=== PATIENT | male | born 1955 | race Caucasian/White ===

== ENCOUNTER 2016-12-24 15:38 | Emergency (ER) | payer BC ==
[2016-12-24] MEDS ORDERED: Aspirin 81 MG Tab.Chew PO ONE (16:05)
[2016-12-24] MEDS ORDERED: Sodium Chloride 0.9% 10 ML Syringe FLUSH PRN (16:05)
--- NOTE | 2016-12-24 16:06 | EDM.PDOC ---
ED HISTORY OF PRESENT ILLNESS - General Chief Complaint: Chest Pain Stated Complaint: CHEST PAIN Time Seen by Provider: 12/24/16 15:53 Source of Information: Reports: Patient, RN notes reviewed - History of Present Illness INITIAL COMMENTS - FREE TEXT/NARRATIVE: 61-year-old gentleman with history of hypertension presents to ED with worsening chest pain. He had onset of mild chest discomfort about 3 days ago that has been intermittent. He thought perhaps this was acid reflux. He's tried various meds for that but those meds have not been helping him. This afternoon at work at his desk the discomfort became worse, more intense and also some radiation to the left shoulder and onset of some numbness of the left hand. He also feels more fatigued than usual. No abdominal pain nausea vomiting or diaphoresis. He does not smoke. No recent cough fever or chills. There is some family history for heart problems. Both of his parents did develop congestive heart failure at a very advanced age. - Related Data Allergies/ADRs: Allergies Allergy/AdvReac Type Severity Reaction Status Date / Time No Known Allergies Allergy Verified 12/24/16 15:41 Past Medical History Respiratory History: Reports: Asthma - Past Surgical History HEENT Surgical History: Reports: Other (see below) Other HEENT Surgeries/Procedures: ear surgery, skin cancer GI Surgical History: Reports: Appendectomy Social & Family History - Tobacco Use Smoking Status *Q: Never Smoker - Caffeine Use Caffeine Use: Reports: Coffee - Recreational Drug Use Recreational Drug Use: No ED ROS GENERAL - Review of Systems Review Of Systems: See Below Constitutional: Reports: fatigue. Denies: fever, chills, diaphoresis HEENT: Reports: No symptoms Respiratory: Denies: Shortness of Breath, Pleuritic Chest Pain, Cough Cardiovascular: Reports: Chest pain, Lightheadedness GI/Abdominal: Denies: Abdominal pain, Nausea, Vomiting Musculoskeletal: Reports: shoulder pain (Left shoulder pain this afternoon). Denies: neck pain, arm pain, back pain, leg pain Skin: Reports: no symptoms Neurological: Reports: Numbness (Left hand) ED EXAM, GENERAL - Physical Exam Exam: See Below General Appearance: alert, no apparent distress Eye Exam: bilateral eye: PERRL Throat/Mouth: Normal inspection, Normal oropharynx Head: atraumatic. No: facial swelling Neck: supple, full range of motion. No: lymphadenopathy (L), lymphadenopathy (R ) Respiratory/Chest: no respiratory distress, lungs clear, normal breath sounds, chest non-tender Cardiovascular: regular rate, rhythm GI/Abdominal: soft, non tender. No: guarding Back Exam: No: CVA tenderness (L), CVA tenderness (R) Extremities: No: normal range of motion Neurological: no motor/sensory deficits Skin Exam: Warm, Dry, Normal color Course - Vital Signs Last Recorded V/S: Last Vital Signs Temp 97.8 F 12/24/16 15:41 Pulse 71 12/24/16 16:20 Resp 24 H 12/24/16 15:41 BP 148/99 H 12/24/16 16:20 Pulse Ox 97 12/24/16 15:41 - Orders/Labs/Meds Orders: Active Orders 24 hr Category Date Time Status EKG 12 Lead [EKG Documentation Completion] [RC] STAT Care 12/24/16 16:04 Active Peripheral IV Care [RC] . DIRECTED Care 12/24/16 16:05 Active Chest 1V Frontal [CR] Stat Exams 12/24/16 16:04 Taken Sodium Chloride 0.9% [Saline Flush] Med 12/24/16 16:05 Active 10 ml FLUSH ASDIRECTED PRN Peripheral IV Insertion Adult [OM.PC] Stat Oth 12/24/16 16:05 Ordered Medication Orders Sodium Chloride (Saline Flush) 10 ml FLUSH ASDIRECTED PRN PRN Reason: Keep Vein Open Last Admin: 12/24/16 15:53 Dose: 10 ml Labs: Laboratory Tests 12/24/16 12/24/16 12/24/16 Range/Units 15:53 15:53 18:10 WBC 7.53 (4.23-9.07) K/mm3 RBC 5.53 (4.63-6.08) M/mm3 Hgb 15.5 (13.7-17.5) gm/L Hct 46.6 (40.1-51.0) % MCV 84.3 (79.0-92.2) fl MCH 28.0 (25.7-32.2) pg MCHC 33.3 (32.2-35.5) g/dl RDW Std Deviation 42.3 (35.1-43.9) fL Plt Count 193 (163-337) K/mm3 MPV 8.3 L (9.4-12.3) fl Neut % (Auto) 59.9 (34.0-67.9) % Lymph % (Auto) 25.1 (21.8-53.1) % [place] % (Auto) 10.1 (5.3-12.2) % Eos % (Auto) 4.2 (0.8-7.0) Baso % (Auto) 0.3 (0.1-1.2) % Neut # (Auto) 4.51 (1.78-5.38) K/mm3 Lymph # (Auto) 1.89 (1.32-3.57) K/mm3 [place] # (Auto) 0.76 (0.30-0.82) K/mm3 Eos # (Auto) 0.32 (0.04-0.54) K/mm3 Baso # (Auto) 0.02 (0.01-0.08) K/mm3 Sodium 143 (136-145) mEq/L Potassium 3.3 L (3.5-5.1) mEq/L Chloride 104 (98-107) mEq/L Carbon Dioxide 32 (21-32) mEq/L Anion Gap 10.3 (5-15) BUN 13 (7-18) mg/dL Creatinine 1.0 (0.7-1.3) mg/dL Est Cr Clr Drug Dosing 3.02 mL/min Estimated GFR (MDRD) > 60 (>60) mL/min BUN/Creatinine Ratio 13.0 L (14-18) Glucose 102 (74-106) mg/dL Calcium 8.7 (8.5-10.1) mg/dL Total Bilirubin 0.6 (0.2-1.0) mg/dL AST 25 (15-37) U/L ALT 39 (16-63) U/L Alkaline Phosphatase 77 (46-116) U/L Troponin I < 0.017 < 0.017 (0.00-0.056) ng/mL Total Protein 7.2 (6.4-8.2) g/dl Albumin 4.0 (3.4-5.0) g/dl Globulin 3.2 gm/dL Albumin/Globulin Ratio 1.3 (1-2) Meds: Medications Generic Name Dose Route Start Last Admin Trade Name Freq PRN Reason Stop Dose Admin Sodium Chloride 10 ml 12/24/16 16:05 12/24/16 15:53 Saline Flush FLUSH 10 ml ASDIRECTED PRN Administration Keep Vein Open Discontinued Medications Generic Name Dose Route Start Last Admin Trade Name Neelam PRN Reason Stop Dose Admin Aspirin 324 mg 12/24/16 16:05 12/24/16 16:20 Aspirin PO 12/24/16 16:06 324 mg ONETIME ONE Administration Metoprolol Tartrate 50 mg 12/24/16 16:07 12/24/16 16:20 Lopressor PO 12/24/16 16:08 50 mg ONETIME ONE Administration - Re-Assessments/Exams Free Text/Narrative Re-Assessment/Exam: 12/24/16 17:08. Troponin, initial labs have come back normal. Just a few minutes ago when in the room I did observe that he is having somewhat frequent PACs. We did see a few of those initially but they're now occurring somewhat more frequently. He states he can feel these, his chest does feel more "heavy after each PAC. Chest x-ray shows what may be some mild cardiomegaly. I am going to do a repeat 2 hour troponin. 12/24/16 18:50. Repeat troponin did come back negative. I did give him 50 mg metoprolol he does seem to be having less of the PACs now than what he was having 90 minutes ago. I will have him continue at a dosage of 25 mg twice a day. On further questioning the patient and his he has had previous angiography and they state there is no significant blockage at that time. He is not sure how long ago but apparently a fair number of years ago. He also has had previous stress tests. He has never had echocardiogram. His chest x-ray does suggest some left ventricular hypertrophy and voltage criteria on EKG also suggests left ventricular hypertrophy. Therefore I am going to set him up for an echocardiogram. Discharge instructions as documented. Departure - Departure Time of Disposition: 19:02 Disposition: Home, Self-Care 01 Condition: fair Clinical Impression: Atypical chest pain, Premature atrial beats, Ventricular hypertrophy Instructions: Premature Atrial Contraction, Nonspecific Chest Pain, Easy-to- Read Referrals: Jono Lewis Jr, MD [Primary Care Provider] - Forms: ED Department Discharge Additional Instructions: continue current meds., metropolol 25 mg or 1/2 of a 50 mg tablet twice daily, do not take a morning or evening dose if your heart rate at that time is less than 55. Cardiac echocardiogram, Radiology dept will call you in the morning to give you a time. Eat a cardiac healthy diet, regular exercise program is also important for your [facility] health, follow up with Dr Lewis about 5 days after your echocardogram for results, return to ED if symptoms worsening in any way. - My Orders Last 24 Hours: My Active Orders 12/24/16 16:04 EKG 12 Lead [EKG Documentation Completion] [RC] STAT Chest 1V Frontal [CR] Stat 12/24/16 16:05 Peripheral IV Care [RC] . DIRECTED Sodium Chloride 0.9% [Saline Flush] 10 ml FLUSH ASDIRECTED PRN Peripheral IV Insertion Adult [OM.PC] Stat - Assessment/Plan Last 24 Hours: My Active Orders 12/24/16 16:04 EKG 12 Lead [EKG Documentation Completion] [RC] STAT Chest 1V Frontal [CR] Stat 12/24/16 16:05 Peripheral IV Care [RC] . DIRECTED Sodium Chloride 0.9% [Saline Flush] 10 ml FLUSH ASDIRECTED PRN Peripheral IV Insertion Adult [OM.PC] Stat
[2016-12-24] MEDS ORDERED: Metoprolol Tartrate 50 MG Tab PO ONE (16:07)
[2016-12-24 16:21] VITALS: BP 148/99
--- NOTE | 2016-12-25 08:03 | CR ---
Chest: Portable view of the chest was obtained. Comparison: No previous chest x-ray. Heart size is felt to be slightly enlarged with left ventricular configuration. Mild upper lobe pulmonary vascular redistribution is seen. Lungs otherwise are clear. Bony structures are grossly intact. Impression: 1. Findings as described above. Diagnostic code #3
== END 2016-12-24 19:25 | disposition home or self-care (01) ==
LOC: JD.ED 15:38
DX: R07.89 Other chest pain (principal); I49.1 Atrial premature depolarization; I51.7 Cardiomegaly; I10 Essential (primary) hypertension; J45.909 Unspecified asthma, uncomplicated
CPT/HCPCS: 36415; 71010; 80053; 84484; 85025; 93005; 99285; A9270; J7050

== ENCOUNTER 2021-05-25 07:29 | Day surgery (SDC) | payer BC ==
[~2021-05-25 07:29] MED LIST: Lactated Ringers 1,000 ML IV SCH; Lidocaine 1%/Sod Bicarbonate in NS 8.4% 1 ML Syringe IDERM PRN; Sodium Chloride 0.9% 10 ML Syringe FLUSH PRN
--- NOTE | 2021-05-25 08:02 | PCM.PREANE ---
Preanesthetic Assessment - Procedure Proposed Procedure: diagnostic Colonoscopy - Anesthesia/Transfusion/Family Hx Anesthesia History: Prior Anesthesia Without Reaction Family History of Anesthesia Reaction: No Transfusion History: No Prior Transfusion(s) - Review of Systems General: No Symptoms Pulmonary: Cough Cardiovascular: Dyspnea on Exertion Gastrointestinal: No Symptoms Neurological: No Symptoms Other: Reports: None - Physical Assessment NPO Status Date: 05/24/21 NPO Status Time: 00:00 Height: 1.83 m Weight: 112 kg ASA Class: 3 Mental Status: Alert & Oriented x3 Airway Class: Mallampati = 2 Dentition: Reports: Grottoes(s), Implants Thyro-Mental Finger Breadths: 2 Mouth Opening Finger Breadths: 2 ROM/Head Extension: Full Lungs: Clear to Auscultation, Normal Respiratory Effort Cardiovascular: Regular Rate, Regular Rhythm - Imaging/EKG Impressions: EKG SR rate 61 ECHO 60-65% - Allergies Allergies/Adverse Reactions: Allergies Allergy/AdvReac Type Severity Reaction Status Date / Time No Known Allergies Allergy Verified 05/24/21 15:28 - Blood Blood Available: No Product(s) Available: None - Anesthesia Plan Pre-Op Medication Ordered: None - Acknowledgements Anesthesia Type Planned: MAC Pt an Appropriate Candidate for the Planned Anesthesia: Yes Alternatives and Risks of Anesthesia Discussed w Pt/Guardian: Yes Pt/Guardian Understands and Agrees with Anesthesia Plan: Yes PreAnesthesia Questionnaire Cardiovascular History: Reports: Heart Failure, Hypertension Respiratory History: Reports: Asthma, COPD, SOB Gastrointestinal History: Reports: GERD, Irritable Bowel Syndrome Genitourinary History: Reports: [employer] History: Reports: None Musculoskeletal History: Reports: Gout, Other (See Below) Other Musculoskeletal History: hip pain, low back pain, right knee pain Neurological History: Reports: Seizure Psychiatric History: Reports: Anxiety, Depression Endocrine/Metabolic History: Reports: None Hematologic History: Reports: None Immunologic History: Reports: None Oncologic (Cancer) History: Reports: None Dermatologic History: Reports: None - Infectious Disease History Infectious Disease History: Reports: None - Past Surgical History Head Surgeries/Procedures: Reports: None HEENT Surgical History: Reports: Naso-Sinus Surgery, Other (See Below) Other HEENT Surgeries/Procedures: ear surgery, skin cancer Cardiovascular Surgical History: Reports: None Respiratory Surgical History: Reports: None GI Surgical History: Reports: Appendectomy Male Surgical History: Reports: Vasectomy Endocrine Surgical History: Reports: None Neurological Surgical History: Reports: None Musculoskeletal Surgical History: Reports: None Oncologic Surgical History: Reports: None Dermatological Surgical History: Reports: None - SUBSTANCE USE Tobacco Use Status *Q: Never Tobacco User Tobacco Use Within Last Twelve Months: No Second Hand Smoke Exposure: No Days Per Week of Alcohol Use: 1 Number of Drinks Per Day: 1 Total Drinks Per Week: 1 Recreational Drug Use History: No - HOME MEDS Home Medications: Home Meds Albuterol [Ventolin HFA] 2 puff INH Q4H PRN 05/24/21 [History] Chlorthalidone 25 mg PO DAILY 05/24/21 [History] Cholecalciferol (Vitamin D3) [Vitamin D3] 10,000 unit PO ASDIRECTED 05/24/21 [History] Colchicine 0.6 mg PO DAILY 05/24/21 [History] Irbesartan 300 mg PO DAILY 05/24/21 [History] Mometasone/Formoterol [Dulera 100-5 MCG] 1 puff INH DAILY 05/24/21 [History] RABEprazole Sodium [Aciphex] 20 mg PO DAILY 05/24/21 [History] allopurinoL [Zyloprim] 200 mg PO DAILY 05/24/21 [History] dilTIAZem HCL [Cardizem Cd] 360 mg PO DAILY 05/24/21 [History] hydroCHLOROthiazide [Hydrochlorothiazide] 25 mg PO DAILY 05/24/21 [History] - CURRENT (IN HOUSE) MEDS Current Meds: Current Medications Lactated Ringer's (Ringers, Lactated) 1,000 mls @ 125 mls/hr IV ASDIRECTED KARLA Stop: 05/25/21 23:00 Lidocaine/Sodium Bicarbonate (Lidocaine 1%/Sod Bicarbonate In Ns 8.4% 1 Ml Syringe) 0.25 ml IDERM ONETIME PRN PRN Reason: Prior to IV Start Stop: 05/25/21 18:00 Sodium Chloride (Sodium Chloride 0.9% 10 Ml Syringe) 10 ml FLUSH ASDIRECTED PRN PRN Reason: Keep Vein Open Stop: 05/25/21 18:00
[2021-05-25] MEDS ORDERED: Propofol 200 MG/20 ML SDV ONE ×2 (08:10→09:20)
[2021-05-25] MEDS ORDERED: Lidocaine 1% 4 ML ONE (08:10)
--- NOTE | 2021-05-25 10:09 | PCM48HPAN ---
Post Anesthesia Note - EVALUATION WITHIN 48HRS OF ANESTHETIC Vital Signs in Normal Range: Yes Patient Participated in Evaluation: Yes Respiratory Function Stable: Yes Airway Patent: Yes Cardiovascular Function Stable: Yes Hydration Status Stable: Yes Pain Control Satisfactory: Yes Nausea and Vomiting Control Satisfactory: Yes Mental Status Recovered: Yes Vital Signs: Last Vital Signs Temp 36.3 C 05/25/21 07:50 Pulse 84 05/25/21 07:50 Resp 16 05/25/21 07:50 BP 164/104 H 05/25/21 07:50 Pulse Ox 100 05/25/21 07:50
--- NOTE | 2021-05-25 10:09 | PCM.PRNOTE ---
- Free Text/Narrative Note: Date: 05/25/2021 Procedure: diagnostic colonoscopy Indication: positive cologuard screening test Endoscopist: Daryn Humphreys MD Findings: Prep was excellent. Terminal ileum was intubated. 3 cm pedunculated polyp in the mid rectum. Additional small polyps noted throughout the colon, with a total of 5 polyps removed. There was a submucosal lesion measuring 2 cm in diameter identified in the sigmoid colon which was also removed. Detailed Report: Patient was taken to the endoscopy suite and placed in left lateral decubitus position. Timeout was performed and monitored anesthesia care was initiated. Visual inspection of the anus revealed no abnormality. Digital rectal exam was unremarkable and the prostate felt normal. The colonoscope was inserted and advanced towards the cecum. On entry, a large polyp was identified in the rectum. The scope was successfully advanced to the cecum and the appendiceal orifice was visualized. Prep was excellent. The terminal ileum was intubated. The scope was slowly withdrawn and mucosal surfaces carefully inspected. In the transverse colon, a small sessile polyp was identified and removed using cold forceps. An additional minuscule polyp was identified near the splenic flexure which was removed in similar fashion. In the sigmoid colon, a larger submucosal round well-circumscribed lesion was identified. This was removed using hot snare. The larger polyp that had been identified on entry with the colonoscope was identified as just proximal to the distalmost valve of [place]. Using hot snare, the polyp was removed piecemeal. The polyp measured approximately 3 cm in span. There were additional satellite polypoid lesions in close proximity to this, and these were included in the single specimen container. On retroflexion, no pathology was noted otherwise. Air was suctioned from the distal colon and rectum prior to withdrawal of the scope. The patient tolerated the procedure well.
[2021-05-25 11:19] VITALS: BP 109/69; PULSE 54
== END 2021-05-25 11:15 | disposition home or self-care (01) ==
LOC: JD.SDS 07:29
PROVIDERS: ATTEND Surgery
DX: D12.3 Benign neoplasm of transverse colon (principal); D12.4 Benign neoplasm of descending colon; D12.8 Benign neoplasm of rectum; J44.9 Chronic obstructive pulmonary disease, unspecified; I11.0 Hypertensive heart disease with heart failure; I50.9 Heart failure, unspecified; E66.3 Overweight; Z79.899 Other long term (current) drug therapy; Z90.49 Acquired absence of other specified parts of digestive tract
CPT/HCPCS: 45380; 45385; J2704; J7120; 00811

== ENCOUNTER 2022-01-11 10:47 | Emergency (ER) | payer BC ==
[2022-01-11] MEDS ORDERED: Sodium Chloride 0.9% 10 ML Syringe FLUSH PRN (11:05)
[2022-01-11] MEDS: Sodium Chloride 0.9% 10 ML Syringe FLUSH PRN ×2 (11:05→11:19)
[2022-01-11] MEDS ORDERED: Iopamidol 755 Mg/ML 100 ML Bottle IVPUSH ONE (11:12)
[2022-01-11] MEDS ORDERED: Sodium Chloride 0.9% 100 ML IV SCH (11:15)
[2022-01-11] MEDS ORDERED: Heparin Sodium 5,000 Units/ML Vial IVPUSH ONE (12:15)
[2022-01-11] MEDS ORDERED: Heparin Sodium/D5W 25,000 UNITS/500 ML BAG IV SCH (12:15)
[2022-01-11] MEDS ORDERED: Ondansetron 4 MG/2 ML SDV IVPUSH ONE (12:46)
[2022-01-11 13:33] LABS: CORONAVIRUS COVID-19 NAA NEGATIVE (NEGATIVE)
[2022-01-11 13:55] VITALS: BP 129/88; PULSE 88
== END 2022-01-11 14:04 ==
LOC: JD.ED 10:47
DX: I82.491 Acute embolism and thrombosis of other specified deep vein of right lower extremity (principal); I26.99 Other pulmonary embolism without acute cor pulmonale; I11.0 Hypertensive heart disease with heart failure; I50.9 Heart failure, unspecified; M10.9 Gout, unspecified; N40.0 Benign prostatic hyperplasia without lower urinary tract symptoms; Z79.899 Other long term (current) drug therapy; Z20.822 Contact with and (suspected) exposure to COVID-19
CPT/HCPCS: 0240U; 36415; 71275; 83880; 84484; 85610; 85730; 93005; 93971; 96365; 96366; 96375; 99285; J1644; J2405; J3490; Q9967

== ENCOUNTER 2022-02-05 15:47 | Emergency (ER) | payer BC ==
[2022-02-05] MEDS ORDERED: Iopamidol 755 Mg/ML 100 ML Bottle IVPUSH ONE (17:44)
[2022-02-05] MEDS ORDERED: Sodium Chloride 0.9% 100 ML IV SCH (17:45)
[2022-02-05 19:05] VITALS: BP 168/98; PULSE 70
== END 2022-02-05 19:05 | disposition home or self-care (01) ==
LOC: JD.ED 15:47
DX: M79.604 Pain in right leg (principal); I11.0 Hypertensive heart disease with heart failure; I50.9 Heart failure, unspecified; J45.909 Unspecified asthma, uncomplicated; M10.9 Gout, unspecified; Z90.49 Acquired absence of other specified parts of digestive tract; Z79.899 Other long term (current) drug therapy
CPT/HCPCS: 36415; 71045; 71275; 80053; 83615; 83735; 83880; 84484; 85025; 85379; 85610; 85730; 86140; 93005; 93971; 99284; Q9967; 93010

== ENCOUNTER 2023-03-24 09:31 | Emergency (ER) | payer BC ==
[2023-03-24] MEDS ORDERED: Sodium Chloride 0.9% 10 ML Syringe FLUSH PRN (09:46)
[2023-03-24] MEDS ORDERED: Ondansetron 4 MG/2 ML SDV IVPUSH ONE ×2 (10:00→18:08)
[2023-03-24] MEDS ORDERED: Lactated Ringers 1,000 ML IV ONE ×2 (10:00→12:18)
[2023-03-24 10:05] LABS: EOSINOPHILS ABSOLUTE AUTO 0.04 K/mm3 (0.04-0.54); EOSINOPHILS PERCENT AUTO 0.5 (0.8-7.0); HEMATOCRIT 49.6 % (40.1-51.0); IMMATURE GRAN ABSOLUTE AUTO 0.02 K/mm3 (0.00-0.10); IMMATURE GRAN PERCENT AUTO 0.2 % (<=1.0); LYMPHOCYTES ABSOLUTE AUTO 0.64 K/mm3 (1.32-3.57); LYMPHOCYTES PERCENT AUTO 7.3 % (21.8-53.1); MEAN CORPUSCULAR HGB CONC 32.9 g/dl (32.2-35.5); MEAN CORPUSCULAR VOLUME 85.2 fl (79.0-92.2); MEAN PLATELET VOLUME 8.6 fl (9.4-12.3); MONOCYTES ABSOLUTE AUTO 0.69 K/mm3 (0.30-0.82); MONOCYTES PERCENT AUTO 7.9 % (5.3-12.2); NEUTROPHILS ABSOLUTE AUTO 7.36 K/mm3 (1.78-5.38); NEUTROPHILS PERCENT AUTO 84.1 % (34.0-67.9); PLATELET COUNT,PLT 247 K/mm3 (163-337); RED BLOOD CELL COUNT 5.82 M/mm3 (4.63-6.08); WHITE BLOOD CELL COUNT,WBC 8.75 K/mm3 (4.23-9.07)
[2023-03-24 10:13] LABS: INR 1.12; PROTHROMBIN TIME 11.9 SECONDS (9.7-12.0)
[2023-03-24 10:16] LABS: HEMOGLOBIN 16.3 gm/dl (13.7-17.5)
[2023-03-24 10:23] LABS: ALBUMIN 3.9 g/dl (3.4-5.0); ANION GAP 17.6 (5-15); BILIRUBIN TOTAL 0.9 mg/dL (0.2-1.0); BUN/CREATININE RATIO 11.3 (14-18); CALCIUM 8.9 mg/dL (8.5-10.1); EST CRCL DRUG DOSING (CG) 34.68 mL/min; MAGNESIUM 1.9 mg/dL (1.8-2.4); POTASSIUM,K 3.6 mEq/L (3.5-5.1); PROTEIN TOTAL,TP 7.9 g/dl (6.4-8.2)
[2023-03-24 10:26] LABS: CREATININE 2.3 mg/dL (0.7-1.3)
[2023-03-24] MEDS ORDERED: Acetaminophen 325 MG Tab PO ONE (10:51)
[2023-03-24 11:05] LABS: LACTIC ACID 2.4 mmol/L (0.4-2.0)
[2023-03-24] MEDS: Lactated Ringers 1,000 ML IV SCH ×2 (11:05→12:12)
[2023-03-24 11:45] LABS: CORONAVIRUS COVID-19 NAA NEGATIVE (NEGATIVE); INFLUENZA A NAA NEGATIVE (NEGATIVE)
[2023-03-24 15:07] LABS: APPEARANCE,URINE CLOUDY (Clear); BILIRUBIN,URINE 1+ (Negative); COLOR,URINE AMBER (Yellow); GLUCOSE,URINE NEGATIVE (Negative); KETONES,URINE TRACE (Negative); LEUKOCYTE ESTERASE,URINE NEGATIVE (Negative); NITRITE,URINE NEGATIVE (Negative); OCCULT BLOOD,URINE NEGATIVE (Negative); PH,URINE 5.5 (5.0-8.0); PROTEIN,URINE 3+ (Negative); UROBILINOGEN,URINE 0.2 (0.2-1.0)
[2023-03-24 15:20] LABS: AMORPHOUS SEDIMENT,URINE FEW /hpf (NOT SEEN); BACTERIA,URINE MANY /hpf (FEW); MUCUS,URINE FEW /hpf (FEW); RBC,URINE 0-5 /hpf (0-5); SQUAMOUS EPITHELIAL CELLS,UR 0-5 /hpf (0-5)
[2023-03-24] MEDS ORDERED: Ondansetron 4 MG Tab.DIS PO ONE ×2 (18:08→18:09)
[2023-03-24 18:29] VITALS: BP 139/71; PULSE 70
== END 2023-03-24 18:25 | disposition home or self-care (01) ==
LOC: JD.ED 09:31
DX: E86.0 Dehydration (principal); N28.9 Disorder of kidney and ureter, unspecified; J45.909 Unspecified asthma, uncomplicated; K21.9 Gastro-esophageal reflux disease without esophagitis; Z20.822 Contact with and (suspected) exposure to COVID-19; Z79.51 Long term (current) use of inhaled steroids; Z79.899 Other long term (current) drug therapy
CPT/HCPCS: 0240U; 36415; 71045; 80053; 81001; 83605; 83735; 83880; 84484; 85025; 85610; 87040; 93005; 96361; 96374; 96376; 99284; A9270; J2405; J3490; J7120

== ENCOUNTER 2023-10-27 16:26 | Emergency (ER) | payer BC ==
[2023-10-27] MEDS: Sodium Chloride 0.9% 1,000 ML IV SCH (17:47)
[2023-10-27] MEDS: Ondansetron 4 MG/2 ML SDV IVPUSH ONE (17:47)
[2023-10-27] MEDS: Sodium Chloride 0.9% 10 ML Syringe FLUSH PRN (17:48)
[2023-10-27 17:49] LABS: BASOPHILS PERCENT AUTO 0.5 % (0.0-1.0); EOSINOPHILS ABSOLUTE AUTO 0.1 K/mm3 (0.0-0.4); EOSINOPHILS PERCENT AUTO 1.7 % (0.0-6.0); HEMATOCRIT 48.4 % (42.0-52.0); HEMOGLOBIN 15.8 gm/dl (14.0-18.0); IMMATURE GRAN ABSOLUTE AUTO 0.03 K/mm3 (0.00-0.05); IMMATURE GRAN PERCENT AUTO 0.4 % (0.0-0.4); LYMPHOCYTES ABSOLUTE AUTO 1.4 K/mm3 (1.0-4.8); LYMPHOCYTES PERCENT AUTO 16.8 % (24.0-44.0); MEAN CORPUSCULAR HEMOGLOBIN 28.3 pg (28.0-32.0); MEAN CORPUSCULAR HGB CONC 32.6 g/dl (32.0-36.0); MEAN CORPUSCULAR VOLUME 86.7 fl (83.0-99.0); MONOCYTES ABSOLUTE AUTO 0.7 K/mm3 (0.0-0.8); MONOCYTES PERCENT AUTO 8.8 % (0.0-8.0); NEUTROPHILS ABSOLUTE AUTO 5.8 K/mm3 (1.8-7.7); NEUTROPHILS PERCENT AUTO 71.8 % (41.0-71.0); PLATELET COUNT,PLT 213 K/mm3 (150-400); RED BLOOD CELL COUNT 5.58 M/mm3 (4.52-5.90); WHITE BLOOD CELL COUNT,WBC 8.11 K/mm3 (3.9-11.3)
[2023-10-27 17:52] LABS: APPEARANCE,URINE CLOUDY (Clear); BILIRUBIN,URINE 1+ (Negative); COLOR,URINE YELLOW (Yellow); GLUCOSE,URINE NEGATIVE (Negative); KETONES,URINE TRACE (Negative); LEUKOCYTE ESTERASE,URINE NEGATIVE (Negative); NITRITE,URINE NEGATIVE (Negative); OCCULT BLOOD,URINE TRACE-INTACT (Negative); PROTEIN,URINE 3+ (Negative); UROBILINOGEN,URINE 0.2 (0.2-1.0)
[2023-10-27 18:05] LABS: SQUAMOUS EPITHELIAL CELLS,UR 0-5 /hpf (0-5)
[2023-10-27 18:06] LABS: BACTERIA,URINE MANY /hpf (FEW); MUCUS,URINE MODERATE /hpf (FEW)
[2023-10-27 18:08] LABS: ALBUMIN 3.5 g/dl (3.4-5.0); ANION GAP 16.8 (5-15); BUN/CREATININE RATIO 22.9 (14-18); CREATININE 1.7 mg/dL (0.7-1.3); EST CRCL DRUG DOSING (CG) 46.28 mL/min; POTASSIUM,K 3.8 mEq/L (3.5-5.1)
[2023-10-27] MEDS: cefTRIAXone 2 GM in Sodium Chloride 0.9% 100 ML IV ONE (19:26)
[2023-10-27 20:30] VITALS: BP 101/57; PULSE 71
== END 2023-10-27 20:28 | disposition home or self-care (01) ==
LOC: JD.ED 16:26
DX: N30.01 Acute cystitis with hematuria (principal); E86.0 Dehydration; I11.0 Hypertensive heart disease with heart failure; I50.9 Heart failure, unspecified; I25.2 Old myocardial infarction; J45.909 Unspecified asthma, uncomplicated; K21.9 Gastro-esophageal reflux disease without esophagitis; Z86.16 Personal history of COVID-19; Z79.899 Other long term (current) drug therapy
CPT/HCPCS: 36415; 80053; 81001; 85025; 87086; 96361; 96365; 96375; 99284; J0696; J2405; J3490; J7030

== ENCOUNTER 2023-12-28 16:14 | Observation (INO) | payer BC, MEDICARE ==
[2023-12-28 19:02] LABS: BASOPHILS PERCENT AUTO 0.4 % (0.0-1.0); EOSINOPHILS ABSOLUTE AUTO 0.2 K/mm3 (0.0-0.4); EOSINOPHILS PERCENT AUTO 1.9 % (0.0-6.0); HEMOGLOBIN 14.9 gm/dl (14.0-18.0); IMMATURE GRAN ABSOLUTE AUTO 0.04 K/mm3 (0.00-0.05); IMMATURE GRAN PERCENT AUTO 0.4 % (0.0-0.4); LYMPHOCYTES ABSOLUTE AUTO 1.5 K/mm3 (1.0-4.8); LYMPHOCYTES PERCENT AUTO 16.2 % (24.0-44.0); MEAN CORPUSCULAR HEMOGLOBIN 28.4 pg (28.0-32.0); MEAN CORPUSCULAR HGB CONC 33.1 g/dl (32.0-36.0); MEAN CORPUSCULAR VOLUME 85.9 fl (83.0-99.0); MONOCYTES ABSOLUTE AUTO 0.7 K/mm3 (0.0-0.8); MONOCYTES PERCENT AUTO 8.1 % (0.0-8.0); NEUTROPHILS ABSOLUTE AUTO 6.5 K/mm3 (1.8-7.7); PLATELET COUNT,PLT 210 K/mm3 (150-400); RED BLOOD CELL COUNT 5.24 M/mm3 (4.52-5.90); WHITE BLOOD CELL COUNT,WBC 8.96 K/mm3 (3.9-11.3)
[2023-12-28 19:35] LABS: A/G RATIO 0.9 (1-2); ALBUMIN 3.4 g/dl (3.4-5.0); ANION GAP 14.4 (5-15); C-REACTIVE PROTEIN 0.36 mg/dL (<0.30); CREATININE 0.9 mg/dL (0.7-1.3); EST CRCL DRUG DOSING (CG) 87.42 mL/min; MAGNESIUM 1.8 mg/dL (1.8-2.4); POTASSIUM,K 3.4 mEq/L (3.5-5.1)
[2023-12-28] MEDS: Iopamidol 612 MG/ML 100 ML Bottle IVPUSH ONE (20:04)
[2023-12-28] MEDS: Sodium Chloride 0.9% 1,000 ML IV SCH (20:13)
[2023-12-28] MEDS: Sodium Chloride 0.9% 10 ML Syringe FLUSH PRN ×2 (20:35→21:32)
[2023-12-28] MEDS: Ondansetron 4 MG/2 ML SDV IVPUSH ONE ×2 (21:28→21:30)
[2023-12-28] MEDS: Morphine 4 MG/ML Syringe IVPUSH ONE ×2 (21:30→22:42)
[2023-12-28 21:49] LABS: APPEARANCE,URINE CLEAR (Clear); BILIRUBIN,URINE NEGATIVE (Negative); COLOR,URINE YELLOW (Yellow); GLUCOSE,URINE NEGATIVE (Negative); KETONES,URINE NEGATIVE (Negative); LEUKOCYTE ESTERASE,URINE NEGATIVE (Negative); NITRITE,URINE NEGATIVE (Negative); OCCULT BLOOD,URINE NEGATIVE (Negative); PROTEIN,URINE 2+ (Negative); UROBILINOGEN,URINE 0.2 (0.2-1.0)
[2023-12-28 21:57] LABS: BACTERIA,URINE OCCASIONAL /hpf (FEW); MUCUS,URINE NOT SEEN /hpf (FEW); RBC,URINE 0-5 /hpf (0-5); SQUAMOUS EPITHELIAL CELLS,UR 0-5 /hpf (0-5); WBC,URINE 0-5 /hpf (0-5)
[2023-12-28] MEDS ORDERED: Morphine 4 MG/ML Syringe IVPUSH PRN (22:59)
[2023-12-29] MEDS: Acetaminophen/HYDROcodone 325-5 MG Tab PO PRN (00:33)
[2023-12-29] MEDS: Morphine 4 MG/ML Syringe IVPUSH PRN (02:54)
[2023-12-29] MEDS ORDERED: Promethazine 6.25 MG in Sodium Chloride 0.9% 50 ML IV PRN (07:37)
[2023-12-29] MEDS ORDERED: Acetaminophen 325 MG Tab PO PRN (07:37)
[2023-12-29] MEDS ORDERED: Potassium Chloride 20 MEQ Tab.ER PO ONE (08:27)
[2023-12-29] MEDS ORDERED: Propranolol 60 MG Cap.ER PO SCH (09:00)
[2023-12-29] MEDS ORDERED: Famotidine 20 MG Tab PO SCH (09:00)
[2023-12-29] MEDS ORDERED: RABEPRAZOLE SODIUM 20 MG PO SCH (09:00)
[2023-12-29] MEDS ORDERED: Losartan 100 MG Tab PO SCH (09:00)
[2023-12-29] MEDS ORDERED: Apixaban 5 MG Tab PO SCH (09:00)
[2023-12-29] MEDS ORDERED: ACETYLCYSTEINE 500 MG PO SCH (09:00)
[2023-12-29] MEDS ORDERED: Potassium Chloride 20 MEQ Tab.ER PO SCH (09:00)
[2023-12-29] MEDS ORDERED: Atropine/Diphenoxylate 0.025-2.5 MG Tab PO SCH (09:00)
[2023-12-29] MEDS ORDERED: Pantoprazole 40 MG Tab.CR PO SCH (09:00)
[2023-12-29] MEDS ORDERED: Clopidogrel 75 MG Tab PO SCH (09:00)
[2023-12-29] MEDS ORDERED: Allopurinol 300 MG Tab PO SCH (09:00)
[2023-12-29] MEDS ORDERED: amLODIPine 5 MG Tab PO SCH (09:00)
[2023-12-29] MEDS ORDERED: Enoxaparin 40 MG/0.4 ML Syringe SUBCUT SCH (09:00)
[2023-12-29] MEDS ORDERED: Non-Formulary Medication 1 Each (Rosuvastatin 20 MG Tablet) PO SCH (09:00)
[2023-12-29] MEDS ORDERED: Tamsulosin 0.4 MG Cap.ER PO SCH (09:00)
[2023-12-29] MEDS: Morphine 2 MG/ML SYRINGE IVPUSH PRN (11:23)
[2023-12-29 12:45] VITALS: BP 153/98; PULSE 72
[2023-12-29] MEDS ORDERED: Terazosin 1 MG Cap PO SCH (21:00)
[2023-12-30] MEDS ORDERED: Potassium Chloride 20 MEQ Tab.ER PO SCH (09:00)
== END 2023-12-29 12:16 | disposition home or self-care (01) ==
LOC: JD.ED 16:14 → JD.MS 22:57
PROVIDERS: ADMIT Student in an Organized Health Care Education/Training Program; ATTEND Student in an Organized Health Care Education/Training Program
DX: K80.20 Calculus of gallbladder without cholecystitis without obstruction (principal); R10.11 Right upper quadrant pain; J98.11 Atelectasis; K58.9 Irritable bowel syndrome, unspecified; I25.10 Atherosclerotic heart disease of native coronary artery without angina pectoris; G40.909 Epilepsy, unspecified, not intractable, without status epilepticus; E87.6 Hypokalemia; D68.51 Activated protein C resistance; I10 Essential (primary) hypertension; J45.909 Unspecified asthma, uncomplicated; Z95.5 Presence of coronary angioplasty implant and graft; Z98.890 Other specified postprocedural states; Z79.899 Other long term (current) drug therapy
CPT/HCPCS: 36415; 74177; 80053; 81001; 83690; 83735; 85025; 86140; 96374; 96375; 96376; 99285; A9270; J2270; J2405; J3490; J7030; Q9967

== ENCOUNTER 2025-05-10 11:43 | Emergency (ER) | payer BC ==
[2025-05-10 12:50] LABS: BASOPHILS ABSOLUTE AUTO 0.0 K/mm3 (0.0-0.2); BASOPHILS PERCENT AUTO 0.5 % (0.0-1.0); EOSINOPHILS ABSOLUTE AUTO 0.2 K/mm3 (0.0-0.4); EOSINOPHILS PERCENT AUTO 4.3 % (0.0-6.0); IMMATURE GRAN ABSOLUTE AUTO 0.01 K/mm3 (0.00-0.05); IMMATURE GRAN PERCENT AUTO 0.2 % (0.0-0.4); LYMPHOCYTES ABSOLUTE AUTO 1.0 K/mm3 (1.0-4.8); LYMPHOCYTES PERCENT AUTO 22.3 % (24.0-44.0); MEAN PLATELET VOLUME 8.4 fl (9.4-12.4); MONOCYTES ABSOLUTE AUTO 0.5 K/mm3 (0.0-0.8); MONOCYTES PERCENT AUTO 11.7 % (0.0-8.0); NEUTROPHILS ABSOLUTE AUTO 2.7 K/mm3 (1.8-7.7); NEUTROPHILS PERCENT AUTO 61.0 % (41.0-71.0); NRBC ABSOLUTE 0.00 (0.00-0.02); NRBC PERCENT 0.0 % (0.0-0.2); PLATELET COUNT,PLT 159 K/mm3 (150-400); RED BLOOD CELL COUNT 5.65 M/mm3 (4.52-5.90); WHITE BLOOD CELL COUNT,WBC 4.44 K/mm3 (3.9-11.3)
[2025-05-10 13:10] LABS: A/G RATIO 0.9 (1-2); ALANINE AMINOTRANSFERASE,ALT 31.0 U/L (16-63); ASPARTATE AMNIOTRANSFERASE,AST 27.0 U/L (15-37); BILIRUBIN TOTAL 0.9 mg/dL (0.2-1.0); BLOOD UREA NITROGEN,BUN 18.0 mg/dL (7-18); CARBON DIOXIDE,CO2 26.0 mEq/L (21-32); CHLORIDE,CL 106.0 mEq/L (98-107); CREATINE KINASE,CK 41.0 U/L (39-308); CREATININE 1.0 mg/dL (0.7-1.3); EST CRCL DRUG DOSING (CG) 77.6 mL/min; ESTIMATED GFR 82.0 mL/min (>60); GLUCOSE RANDOM 91.0 mg/dL (70-99); POTASSIUM,K 3.9 mEq/L (3.5-5.1); PROTEIN TOTAL,TP 6.5 g/dl (6.4-8.2); SODIUM,NA 140.0 mEq/L (136-145); TROPONIN I HIGH SENSITIVITY 8.0 pg/mL (<=76)
[2025-05-10 13:46] VITALS: BP 124/82; PULSE 70
== END 2025-05-10 14:10 | disposition home or self-care (01) ==
LOC: JD.ED 11:43
DX: E86.9 Volume depletion, unspecified (principal); B34.9 Viral infection, unspecified; H69.92 Unspecified Eustachian tube disorder, left ear; I10 Essential (primary) hypertension; I25.2 Old myocardial infarction; J45.909 Unspecified asthma, uncomplicated; Z86.16 Personal history of COVID-19; Z79.01 Long term (current) use of anticoagulants; Z79.899 Other long term (current) drug therapy; Z90.49 Acquired absence of other specified parts of digestive tract
CPT/HCPCS: 36415; 71045; 80053; 82550; 83690; 83735; 83880; 84484; 85025; 93005; 96360; 99284; J7030; 93010